=== PATIENT | female | born 1960 | race Caucasian/White ===

== ENCOUNTER 2018-07-05 08:12 | Day surgery (SDC) | payer OTHER ==
[2018-06-01 11:20] VITALS: BMI 18.7
[2018-07-05] VITALS (18 sets, daily range): BP systolic 85–109; BP diastolic 51–83; PULSE 58–90; RESP 15–30; Ht 406.4 cm; Wt 60.8 kg
[~2018-07-05] VITALS: Ht 406.4 cm; Wt 60.8 kg
[~2018-07-05 08:12] MED LIST: CEFAZOLIN 1 GM INJ ONE; DEXAMETHASONE 4 MG/ML 5 ML INJ ONE; ESTROGEN PO; FENTAnyl 50 MCG/ML VIAL ONE; GLYCOPYRROLATE 0.4 MG INJ ONE; LIDOCAINE 2% (SDV) 5 ML INJ ONE; MIDAZOLAM 1 MG/ML 2 ML INJ ONE; NEOSTIGMINE 3 MG/3 ML SYRINGE ONE; ONDANSETRON 4 MG INJ ONE; PROG100C5 PO; PROPOFOL 20 ML ONE; ROCURONIUM 50 MG INJ ONE; ROPIVACAINE 0.5 % 30 ML VIAL ONE; SEVOFLURANE 15 MIN ONE; SUCCINYLCHOLINE CHLORIDE 100 MG/5 ML SYG IV ONE
[2018-07-05] MEDS ORDERED: ESTR0.5T PO (08:50)
[2018-07-05] MEDS ORDERED: ERGO2000 PO (09:06)
[2018-07-05] MEDS ORDERED: MAGN400T28 PO (09:06)
[2018-07-05] MEDS ORDERED: THROMBIN 5000 UNIT VIAL ONE (11:26)
[2018-07-05] MEDS ORDERED: ROPIVACAINE 0.5 % 30 ML VIAL ONE ×2 (11:26→12:08)
[2018-07-05] MEDS ORDERED: GELATIN SIZE 100 SPONGE ONE (11:26)
[2018-07-05] MEDS ORDERED: POLYMYXIN/BACITRACIN 1L IRRIG ONE ×2 (11:27→15:43)
[2018-07-05] MEDS ORDERED: POVIDONE IODINE 10% 28.4 GM OINT ONE (11:27)
--- NOTE | 2018-07-05 11:50 | PREAC ---
Date/Time of Note Date/Time of Note DATE: 07/05/18 TIME: 11:43 Anesthesia Eval and Record Evaluation Time Pre-Procedure Interview DATE: 07/05/18 TIME: 11:43 Age 58 Sex female NPO: 8 hrs Preoperative diagnosis Degenerative Joint Disease Right Foot Planned procedure Right Foot Arthrodesis First Metatarsal Cuniform Joint Iliac Bone Graft Past Medical History Past Medical History: Includes Cardio: Other Endo: Other Pulm: Other Neuro: Other Musculoskeletal: Other Renal: Other Hepatic: Other GI: Other Heme: Other Psych: Other Infection(s): Other Recreational drugs: Other Surgery & Anesthesia Issues Aspiration risk Meds Anticoagulation: No Beta Chely within 24 hr: No Reason Beta Chely not given: Pt. not on B-Chely Reported Medications Magnesium Oxide* (Magnesium Oxide*) 400 Mg Tablet, 400 MG PO DAILY, TAB 07/05/18 Ergocalciferol (Vitamin D2) (VITAMIN D2) 2,000 Unit Tablet, 2000 UNIT PO DAILY, TAB 07/05/18 Estradiol (Estradiol) 0.5 Mg Tablet, 0.5 MG PO DAILY, TAB 07/05/18 Progesterone,Micronized* (Progesterone*) 100 Mg Capsule, 100 MG PO HS, CAP 06/01/18 Discontinued Reported Medications [Estrogen] No Conflict Check, 1 MG PO DAILY 06/01/18 Meds reviewed: Yes Allergies Coded Allergies: No Known Allergy (Unverified , 07/05/18) Allergies Reviewed: Yes Labs/Studies Labs Reviewed: Reviewed by anesthesiologist test: N/A Studies: ECG, CXR Pre-procedure Exam Last vitals Vital Signs Date Temp Pulse Resp B/P (MAP) Pulse Ox O2 O2 Flow FiO2 Time Delivery Rate 07/05/18 97.9 65 16 109/61 100 Room Air 09:16 (77) Airway: Adequate mouth opening Mallampati: Mallampati I Teeth: Normal Lung: Normal Heart: Normal Anticipated Difficutly with IV: Anticipate Difficult IV Access ASA Physical Status ASA physical status: 1 Emergency: None Planned Anesthetic General/MAC: ETT Neuraxial: Other Nerve block: Sciatic Planned Pain Management Single shot nerve block, Parenteral pain med, Local by surgeon Pre-operative Attestations Prior to commencing anesthesia and surgery, the patient was re-evaluated, there was verification of: *The patient's identity *The results of appropriate recent lab work and preoperative vital signs *The above evaluation not changing prior to induction *Anesthetic plan, risk benefits, alternative and complications discussed with patient/family; questions answered; patient/family understands, accepts and wishes to proceed. CAMILA PARRA MD Jul 05, 2018 11:50
--- NOTE | 2018-07-05 17:12 | NUR ---
PACU/RN-RECEIVED PT. FROM OR PER ACLS PROTOCOL. VIA GURNEY, ACCOMPANIED BY OR CREW AND ANESTHESIA S/P-ILIAC CREST BONE GRAFT,RIGHT FOOT ARTHRODESIS, REMOVAL OF BONE SPUR FIRST METATARSAL BONE SPUR. NOTED TO HAVE OCCLUSIVE DRESSING ON RIGHT FOOT, W/ HARD CAST IN PLACE. RIGHT FOOT AND TOES ARE PINK AND WARM, .W/ GOOD POSTERIOR TIBIAL PULSES. DENIES PAIN AT THIS TIME. WILL CONTINUE TO MONITOR PER PROTOCOL. PT. WILL BE DCD TO HOME.
[2018-07-05] MEDS ORDERED: SOD CHLORIDE 0.9% 1,000 ML IV SCH (17:13)
--- NOTE | 2018-07-05 17:19 | OPPN ---
Date/Time of Note Date/Time of Note DATE: 07/05/18 TIME: 17:14 Operative Report Preoperative Diagnosis degenerative joint disease of the right foot first cuneiform joint Postoperative Diagnosis degenerative joint disease of the right foot first cuneiform joint, first metatarsal base bone spur Operation/Procedure Performed iliac crest bone graft right foot arthrodesis first cuneiform joint removal of bone spur along plantar aspect of the first metatarsal base Surgeon see signature line production assistant Brittany Gandhi PA-C Anesthesia: general Estimated blood loss: 10 - 50 ml's Transfusion Required none Specimen none Grafts/Implants none Complications none ARTURO GRIJALVA MD Jul 05, 2018 17:19
[2018-07-05] MEDS ORDERED: METOCLOPRAMIDE 10 MG INJ IV PRN (17:30)
[2018-07-05] MEDS ORDERED: HYDROmorphONE 1 MG/5 ML IV SYRINGE IV PRN ×3 (17:30)
[2018-07-05] MEDS ORDERED: hydrALAzine 20 MG INJ IV PRN (17:30)
[2018-07-05] MEDS ORDERED: morphine 2 MG INJ IV PRN (17:30)
[2018-07-05] MEDS ORDERED: LABETALOL HCL 20MG INJ IV PRN (17:30)
[2018-07-05] MEDS ORDERED: ONDANSETRON 4 MG INJ IV PRN ×2 (17:30)
[2018-07-05] MEDS ORDERED: OXYCODONE/ACETAMINOPHEN (5/325) TAB PO PRN ×2 (17:30)
[2018-07-05] MEDS ORDERED: FENTAnyl 50 MCG/ML VIAL IV PRN ×3 (17:30)
--- NOTE | 2018-07-05 18:20 | NUR ---
PACU/RN-DC INSTRUCTIONS GIVEN TO , VERBALIZED UNDERSTANDING
--- NOTE | 2018-07-05 19:21 | NUR ---
PACU/RN- STABLE. W/ TOLERABLE PAIN, DC TO HOME . VIA [facility]IR TO CAR ACCOMPANIED BY TRANSPORTER AND .
--- NOTE | 2018-07-06 00:25 | OPR ---
DATE OF OPERATION: 07/05/2018 PREOPERATIVE DIAGNOSIS: Degenerative joint disease of the right first tarsometatarsal joint. POSTOPERATIVE DIAGNOSES: 1. Degenerative joint disease of the right first metatarsocuneiform joint. 2. Large plantar osteophytes and dorsal osteophytes secondary degenerative joint disease with a plan tar cyst. OPERATIONS PERFORMED: 1. Arthrodesis of the right first metatarsocuneiform joint. 2. Insertion of iliac crest bone graft to the arthrodesis site. 3. Insertion of a [employer] T-plate and screws and a 4.0 mm AO cannulated screw across the arth rodesis site. 4. Use of fluoroscopy to verify position and alignment of the arthrodesis and of the hardware. 5. Short-leg cast. 6. Use of augment mixed with iliac crest bone to facilitate healing. Complex and difficult procedure because of the very large dorsal and exceedingly large plantar osteop hytes. The plantar osteophytes formed a plantar cyst and deformity in the abductor hallucis muscle. Incision: The procedure took an additional 60 minutes because of the separate incisions that were n ecessary to dissect on the bottom of the foot, removed the cyst in the plantar osteophytes (22). SURGEON: Arturo Grijalva MD DIRECTOR FINANCIAL PLANNING: TOBY Corbin ANESTHESIA: General with popliteal block. TOURNIQUET TIME: 123 minutes. DESCRIPTION OF PROCEDURE: The patient taken to the operating room and placed in supine position. Sa tisfactory popliteal block was given. Satisfactory general anesthesia was administered, 2 grams Ance f intravenously. The right iliac crest was approached first. We pulled the skin up, made a small in cision along the central portion of the anterior iliac crest. Dissection carried to subcutaneous tis colten. The fascia was split in line with its fibers and lifted off the inner and outer tables. Saw wa s used to make 2 vertical cuts and 1 horizontal cut to trap door open the iliac crest. Different ang led curettes were used to obtain adequate amount of bone graft. After bone graft had been obtained, wounds irrigated repeatedly with antibiotic solution and the areas around the iliac crest was packed with thrombin-soaked Gelfoam and covered with a sterile towel. Gloves were changed. The right foot was approached. The tourniquet was inflated to 250 mmHg. Incisi on was made over the first metatarsocuneiform joint dorsally. We decided to make 2 incisions because the osteophytes and swelling were so large, plantarly would require 2 bigger flaps. The dorsal inci prudencio was carried down through subcutaneous tissue. Periosteum was elevated. First metatarsocuneifor m joint was opened and significant degenerative change. Using a laminar medical lab technologist, all articular cart ilage was removed with osteotomes and curettes. A bur was used to remove about 1 mm of bone off the cuneiform and the base of the 1st metatarsal. Multiple spot welds were made with the bur. Multiple drill holes were made with 0.045 K-wire. Once this was done, the osteophytes along the dorsal aspect of the tarsometatarsal joint were removed with a bur and with a rongeur and then smoothed with a pow er rasp. A second incision was then made on the plantar medial aspect of the foot staying off the actual plant ar surface centered at the tarsometatarsal joint over the large osteophytes. Dissection carried down to subcutaneous tissue. The abductor hallucis muscle was deformed and swollen, appeared to be a cys t underneath it. The muscle was split in line with its fibers. The joint capsule was identified and then opened in line longitudinally. Periosteum was elevated medially and laterally. Care was taken at all times to avoid injuring neurovascular structures. The osteophytes were removed with a rongeu r and a bur. Plantar surface of the tarsometatarsal joint was further debrided. A power rasp was us ed to remove further the bone, smoothed the edges until there was no bony prominence. Wounds irrigat ed with antibiotic solution. The capsule was closed with a running 3-0 PDS and the muscle was closed with a running 3-0 undyed Vicryl. The skin was left open until after the tourniquet was released. Attention was then turned to the top of the joint. Bone graft was mixed with augment to facilitate h ealing. Bone graft was placed in the joint. The joint was placed in neutral position being careful not to dorsi and plantarflex it. The joint was packed with bone, so it could be compressed. The neo reeder pin from the 4.0 mm AO cannulated screw set was used. We placed a screw through a small puncture wound along the medial aspect of the cuneiform from proximal medial to distal lateral out the lateral aspect of the first metatarsal. It was checked in AP and lateral planes and looked to be in good po sition and alignment. With the hole that was partially drilled and then a screw inserted, excellent fixation was obtained with reasonably good compression. A Keek T-plate was then placed on the dorsal aspect of the first metatarsocuneiform joint. It was temporarily checked in its position, looked to be in good position and alignment. The screws were then inserted sequentially, checked ag ain on AP and lateral radiographs to be in good position and not violating the articular surfaces. T he distraction wrench was then used to spread the claw plate and further compress the joint. When we were done, there was good compression of the joint and good stability. Final fluoroscopic views octavio wed good position and alignment of the plate and screws. The remaining bone graft was then placed ci rcumferentially along the first metatarsocuneiform joint. It was packed quite tight and securely. W ounds irrigated repeatedly with antibiotic solution. The periosteum was closed with a running 3-0 PD S over the plate. Subcutaneous tissue was closed with limited suture with 3-0 undyed Vicryl and the skin with 4-0 black nylon interrupted. The skin was closed with 4-0 black nylon interrupted and the plantar surface. Saphenous nerve block was done with 0.5% ropivacaine. Iliac crest was then irrigated with antibiotic solution. The thrombin-soaked Gelfoam was removed. T he trap door was placed back down on the iliac crest. The fascia was closed over the iliac crest wit h a running 0 PDS. Subcutaneous tissue was closed with a few 3-0 undyed Vicryl and skin was closed w ith a running subcuticular 3-0 Prolene. Steri-Strips were applied. The iliac crest was infiltrated with 20 mL of 0.5% ropivacaine. Compression dressing was placed on the iliac crest. A compression d ressing was then placed on the ankle prior to placing the cast on. Compression dressing was finished on the iliac crest. All the drapes were removed and a short-leg cast was then placed in neutral pos ition. At the end of procedure, sponge and needle count was correct. The patient tolerated procedur e well. INPATIENT CARE MANAGER RN ORTHOPEDIC SURGEON: During the procedure, an assistant store director was used at my request. The assist ant helped with distraction and exposure. The assistant store director also helped with insertion of the screws and bone graft. Without a skilled assistant store director, this could not have been performed and should be compensat ed appropriately. Dictated By: ARTURO GRIJALVA MD RF/WALE Conf#: [id number] DID#: [id number]
== END 2018-07-05 19:21 | disposition home or self-care (01) ==
LOC: SDS 08:12
PROVIDERS: ATTEND Orthopaedic Surgery
DX: M19.071 Primary osteoarthritis, right ankle and foot (principal)
CPT/HCPCS: 20900; 28750; 73630; C1713; J2250; J2405; J2710; J2795; J3010; J0690; J1100